=== PATIENT | male | born 1995 | race Caucasian/White ===

== ENCOUNTER 2021-11-25 15:49 | Emergency (ER) | payer OTHER ==
[~2021-11-25] VITALS: Ht 172.7 cm; Wt 127.7 kg
--- NOTE | 2021-11-25 16:00 | NUR ---
[id number] FOR FOUND WITH AMS IN FRONT OF [facility]. THE PATIENT IS ALERT AND ORIENTED X4. THE PATIENT STATED THAT HE HUFFED ON CANNED AIR. IN ROOM AIR AND DENIES SOB. RESPIRATION REGULAR AND UNLABORED. ATTACHED TO THE MONITOR. WILL CONTINUE TO MONITOR THE PATIENT.
--- NOTE | 2021-11-25 16:10 | NUR ---
[employer] AT BEDSIDE FOR BLOOD DRAW
--- NOTE | 2021-11-25 16:13 | NUR ---
NOW THE PATIENT STATED HAVING SI WITH PLAN TO CUT HIS WRIST AND WANTS VOL ADMISSION TO [facility]. DENIES HI. DENIES HAVING ANY HALLUCINATIONS. DR RAZA MADE AWARE.
--- NOTE | 2021-11-25 16:40 | NUR ---
PATIENT STILL UNABLE TO GIVE URINE AT THIS TIME, WILL FOLLOW UP
--- NOTE | 2021-11-25 16:40 | NUR ---
COVID SWAB DONE AND SENT TO LAB
[2021-11-25 16:48] LABS: BASOPHILS # (AUTO) 0.1 K/uL (0.0-0.2); BASOPHILS % (AUTO) 0.9 % (0.0-2.0); EOSINOPHILS % (AUTO) 1.6 % (0.0-6.0); HEMATOCRIT 46 % (39-51); HEMOGLOBIN 15.7 g/dL (13.5-17.5); LYMPHOCYTES # (AUTO) 3.2 K/uL (0.8-4.8); LYMPHOCYTES % (AUTO) 32.8 % (20.0-44.0); MEAN CORPUSCULAR HGB CONC 35 g/dl (31.0-36.0); MEAN CORPUSCULAR VOLUME 96 fL (80-96); MONOCYTES # (AUTO) 0.6 K/uL (0.1-1.30); MONOCYTES % (AUTO) 5.9 % (2.0-12.0); NEUTROPHILS # (AUTO) 5.7 K/uL (1.8-8.9); NEUTROPHILS % (AUTO) 58.8 % (43.0-81.0); PLATELET COUNT (AUTO) 318 K/uL (150-450); RED BLOOD CELL COUNT(AUTO) 4.76 MIL/uL (4.5-6.0); WHITE BLOOD COUNT (AUTO) 9.7 K/uL (4.3-11.0)
[2021-11-25 17:10] LABS: ALBUMIN 3.9 g/dL (3.4-5.0); BILIRUBIN,DIRECT 0.1 mg/dL (0.0-0.2); BILIRUBIN,TOTAL 0.5 mg/dL (0.2-1.0); CALCIUM, SERUM 10.1 mg/dL (8.5-10.1); CREATININE 1.1 mg/dL (0.6-1.3); POTASSIUM 3.9 mmol/L (3.5-5.1); TOTAL PROTEIN, SERUM 7.5 g/dL (6.4-8.2)
--- NOTE | 2021-11-25 18:30 | NUR ---
URINE COLLECTED AND SENT TO LAB
[2021-11-25 19:04] LABS: BILIRUBIN,URINE NEGATIVE (NEGATIVE); COLOR,URINE YELLOW (YELLOW); LEUKOCYTE ESTERASE ,URINE NEGATIVE (NEGATIVE); NITRITE, URINE NEGATIVE (NEGATIVE); PROTEIN,URINE 30 mg/dl (NEGATIVE); UGLUCOSE NEGATIVE (NEGATIVE); UROBILINOGEN,URINE 0.2 EU/dL (0.2)
[2021-11-25 19:08] LABS: BACTERIA,URINE None seen /HPF (None Seen); MUCUS,URINE Few /LPF (None Seen); RBC,URINE 0-2 /HPF (0-2); SQUAMOUS EPITHELIAL CELL,UR 0-2 /HPF (None Seen); WBC,URINE 0-2 /HPF (0-3)
--- NOTE | 2021-11-25 19:34 | NUR ---
FACESHEET AND CLINICALS FAXED TO [facility].
[2021-11-25] MEDS ORDERED: LamoTRIgine 100 MG TABLET PO ONE (21:00)
[2021-11-25] MEDS ORDERED: GABAPENTIN 100 MG CAPSULE PO ONE (21:00)
[2021-11-25] MEDS ORDERED: OLANZAPINE 5 MG TABLET PO ONE (21:00)
[2021-11-25] MEDS ORDERED: hydrOXYzine 10 MG TABLET PO ONE (21:00)
[2021-11-25] MEDS ORDERED: busPIRone 5 MG TABLET PO ONE (21:00)
[2021-11-25] MEDS ORDERED: QUETIAPINE FUMARATE 100 MG TABLET PO ONE (21:00)
[2021-11-25] MEDS ORDERED: TRAZODONE 50 MG TABLET PO ONE (21:00)
[2021-11-25] MEDS ORDERED: MIRTAZAPINE 15 MG TABLET PO ONE (21:00)
[2021-11-25] MEDS ORDERED: VENLAFAXINE XR 150 MG CAP.SR.24H PO ONE (21:00)
[2021-11-25] MEDS ORDERED: GABAPENTIN 300 MG CAPSULE ONE (21:03)
[2021-11-25] MEDS ORDERED: GABAPENTIN 100 MG CAPSULE ONE (21:03)
[2021-11-25] MEDS ORDERED: QUETIAPINE FUMARATE 100 MG TABLET ONE (21:03)
[2021-11-25] MEDS ORDERED: OLANZAPINE 5 MG TABLET ONE (21:04)
[2021-11-25] MEDS ORDERED: MIRTAZAPINE 15 MG TABLET ONE (21:04)
[2021-11-25] MEDS ORDERED: TRAZODONE 50 MG TABLET ONE (21:04)
[2021-11-25] MEDS ORDERED: VENLAFAXINE XR 150 MG CAP.SR.24H ONE (21:05)
--- NOTE | 2021-11-26 11:50 | NUR ---
PT ACCEPTED TO [facility] PER INTAKE YOLETTE AWAITING BED AVAILABILITY.
--- NOTE | 2021-11-26 13:41 | NUR ---
CALLED ENDER INTAKE INFORMING PT REQUESTING [employer].
--- NOTE | 2021-11-26 13:50 | NUR ---
PATIENT AMBULATED TO THE RESTROOM WITH STEADY GAIT
[2021-11-26] MEDS ORDERED: hydrOXYzine 10 MG TABLET PO ONE (14:30)
[2021-11-26] MEDS ORDERED: GABAPENTIN 100 MG CAPSULE PO ONE (14:30)
[2021-11-26] MEDS ORDERED: QUETIAPINE FUMARATE 100 MG TABLET PO SCH (14:30)
[2021-11-26] MEDS ORDERED: MIRTAZAPINE 15 MG TABLET PO ONE (14:30)
[2021-11-26] MEDS ORDERED: VENLAFAXINE 37.5 MG TABLET PO ONE (14:30)
[2021-11-26] MEDS ORDERED: OLANZAPINE 5 MG TABLET PO ONE (14:30)
[2021-11-26] MEDS ORDERED: TRAZODONE 50 MG TABLET PO ONE (14:30)
[2021-11-26] MEDS ORDERED: busPIRone 5 MG TABLET PO ONE (14:30)
[2021-11-26] MEDS ORDERED: LamoTRIgine 100 MG TABLET PO SCH (14:30)
--- NOTE | 2021-11-26 14:35 | NUR ---
ENDER INTAKE: STILL AWAITING FEED BACK.
[2021-11-26] MEDS ORDERED: busPIRone 5 MG TABLET ONE (14:43)
[2021-11-26] MEDS ORDERED: GABAPENTIN 100 MG CAPSULE ONE (14:44)
[2021-11-26] MEDS ORDERED: GABAPENTIN 300 MG CAPSULE ONE (14:44)
[2021-11-26] MEDS ORDERED: MIRTAZAPINE 15 MG TABLET ONE (14:45)
[2021-11-26] MEDS ORDERED: TRAZODONE 50 MG TABLET ONE (14:45)
[2021-11-26] MEDS ORDERED: OLANZAPINE 5 MG TABLET ONE (14:45)
[2021-11-26] MEDS ORDERED: VENLAFAXINE XR 150 MG CAP.SR.24H ONE (14:46)
[2021-11-26] MEDS ORDERED: QUETIAPINE FUMARATE 100 MG TABLET ONE (14:51)
--- NOTE | 2021-11-26 17:05 | NUR ---
SPOKE WITH VENECIA, PATIENT IS ACCEPTED AT [facility] UNDER [address] PERRIN. GIVE REPORT TO MUKESH [phone]
--- NOTE | 2021-11-26 17:08 | NUR ---
[facility] CALLED FOR TRANSPORT ETA [id number] PER PASHA.
--- NOTE | 2021-11-26 17:13 | NUR ---
REPORT GIVEN TO MUKESH FOR [facility]
[2021-11-26 17:45] VITALS: BP 126/70
--- NOTE | 2021-11-26 17:55 | NUR ---
PICKED UP BY TRANSPORT IN STABLE CONDITION
== END 2021-11-26 18:49 ==
LOC: ER 15:54
DX: R45.851 Suicidal ideations (principal); T59.891A Toxic effect of other specified gases, fumes and vapors, accidental (unintentional), initial encounter; R41.82 Altered mental status, unspecified; Y92.199 Unspecified place in other specified residential institution as the place of occurrence of the external cause; F31.9 Bipolar disorder, unspecified; Z20.822 Contact with and (suspected) exposure to COVID-19
CPT/HCPCS: 36415; 80048; 80076; 80143; 80307; 80320; 81001; 85025; 87426; 99285; C9803; G0480